=== PATIENT | female | born 1990 | race Caucasian/White ===

== ENCOUNTER 2016-12-18 09:53 | Emergency (ER) | payer SELFPAY ==
[~2016-12-18] VITALS: Ht 170.2 cm; Wt 51.0 kg
[2016-12-18 09:58] VITALS: BP 114/86; PULSE 98; RESP 12; TEMP 98.1; O2SAT 99
[2016-12-18] MEDS ORDERED: CLIN1CAP6 PO (10:13)
[2016-12-18] MEDS ORDERED: PERC5TAB12 PO (10:14)
--- NOTE | 2016-12-18 10:14 | PD ---
HPI Chief Complaint: Logistics Vice President Problem/Complaint Time Seen by Provider: 10:07 Travel History International Travel<30 days: No Contact w/Intl Traveler<30days: No Traveled to known affect area: No History of Present Illness HPI 26 year old female here with complaint of abscess. For the last 3 days patient has had swelling on the left side of the genital region. States that it started out as a "pimple" around her labia has gotten progressively larger. Patient is concern for abscess. This has not been draining. No urinary or bowel symptoms. No pain within the vaginal vault. No fevers or chills. PFSH Past Medical History Diabetes: No Diminished Hearing: No Hepatitis: Yes (hepatitis C) Reproductive: Yes (PID) Immunizations Current: No ?: Not LMP: 12/04/16 Social History Alcohol Use: Yes (SOC) Tobacco Use: Yes (1 PPD) Substance Use: Yes (IV Dilaudid) Allergies-Medications (Allergen,Severity, Reaction): Coded Allergies: Vancomycin (Verified Allergy, Severe, ITCHING, 12/18/16) Reported Meds & Prescriptions Reported Meds & Active Scripts Active Percocet (Oxycodone-Acetaminophen) 5-325 mg Tab 1-2 Tab PO Q4H PRN Clindamycin (Clindamycin HCl) 300 Mg Cap 300 Mg PO TID 7 Days Review of Systems Except as stated in HPI: all other systems reviewed are Neg Physical Exam Narrative GENERAL: Well-appearing female in mild distress SKIN: Focused skin assessment warm/dry. HEAD: Normocephalic. EYES: No scleral icterus. No injection or drainage. ENT: Mucous membranes pink and moist. NECK: Supple CARDIOVASCULAR: Regular rate and rhythm. RESPIRATORY: No accessory muscle use GASTROINTESTINAL: Abdomen soft, non-tender, nondistended. GENITOURINARY: External female genitalia with obvious erythema, fluctuance of the left labia minora consistent with abscess with surrounding cellulitis MUSCULOSKELETAL: Normal gait NEUROLOGICAL: Awake and alert. Normal speech. PSYCHIATRIC: Appropriate mood and affect; insight and judgment normal. Data Data Last Documented VS Vital Signs Date Time Temp Pulse Resp B/P Pulse Ox O2 Delivery O2 Flow Rate FiO2 12/18/16 09:58 98.1 98 12 114/86 99 Orders Lidocai-Epi 1%-1:100,000 Inj (Xylocaine- (5/21/17 10:15) Hydromorphone Pf Inj (Dilaudid Pf Inj) (12/18/16 10:15) [facility] Medical Decision Making Medical Screen Exam Complete: Yes Emergency Medical Condition: Yes Medical Record Reviewed: Yes Differential Diagnosis 26-year-old female here for 3 days of left-sided labial pain and swelling. Exam is consistent with abscess versus Bartholin's cyst/abscess with surrounding cellulitis. No evidence of necrotizing fasciitis Narrative Course I&D performed, please see procedure note. Procedures Procedure Narrative INCISION AND DRAINAGE OF ABSCESS: The area was prepped and was sterilely draped. A subcutaneous wheal of 1% Xylocaine with epinephrine with a total number 8 mL was used to anesthetize the area. The area was properly anesthetized. A number 11 blade scalpel was used to make a 1-cm incision across the area of the abscess. Wound culture sent. The abscess was drained an irrigated with normal saline. Quarter inch iodoform packing was placed in the wound. Sterile dressing applied. Patient advised to have packing removed in two days. Diagnosis Primary Impression: Left genital labial abscess Referrals: [facility] 2 days Additional Instructions: Antibiotics as prescribed. These can cause diarrhea as a side effect. Pain medications as needed. Sitz bath 3 times a day. If the packing falls out manually keep the incision open to allow for continual drainage. Follow-up with [facility] or emergency department in 2 days for wound check. Med/Other Pt SpecificInfo: Prescription(s) given Scripts Oxycodone-Acetaminophen (Percocet)5-325 mg Tab1-2 Tab PO Q4H PRN (PAIN) #12 TAB Ref 0 Prov:Della Peraza MD 12/18/16 Clindamycin 300 Mg Vuj729 Mg PO TID 7 Days Ref 0 Prov:Della Peraza MD 12/18/16 Disposition: 01 DISCHARGE HOME Condition: Stable Della Peraza MD December 18, 2016 10:14
[2016-12-18] MEDS ORDERED: HYDROmorphone HCL PF 1 MG/ML VIAL IM ONE (10:15)
[2016-12-18] MEDS ORDERED: LIDOCAINE 1%/EPINEPHrine 1:100,000 SOLN 20 ML VIAL INFIL ONE (10:15)
== END 2016-12-18 11:06 | disposition home or self-care (01) ==
LOC: PHED 09:53
DX: N76.4 Abscess of vulva (principal); F17.210 Nicotine dependence, cigarettes, uncomplicated; F11.20 Opioid dependence, uncomplicated; B19.20 Unspecified viral hepatitis C without hepatic coma
CPT/HCPCS: 56405; 86403; 87070; 87186; 96372; 99283; J1170; 87205